=== PATIENT | male | born 2000 | race Two or more races ===

== ENCOUNTER 2024-05-26 22:54 | Emergency (ER) | payer SELFPAY ==
[2024-05-26 22:54] VITALS: BMI 32.8
[2024-05-26 23:02] VITALS: BP 124/79; PULSE 119; RESP 18; TEMP 39.2; O2SAT 98
--- NOTE | 2024-05-26 23:09 | PD.EDFEVER ---
ED Fever RME/HPI General Chief Complaint: Fever Stated Complaint: FEVER X2DAYS Time Seen by Provider: 05/26/24 22:58 Arrival date/time: 05/26/24 22:54 RME / HPI RME / HPI Narrative: This section includes all my notes and documentations, including HPI, PE, and ED course. Binh Chan MD HPI: 24yo male presents to the ED for a chief complaint of fever and chills x 2 days. Patient states he's had a fever, chills, cough, and body aches for the last 2 days. He denies any nausea, vomiting, diarrhea or any other associated symptoms. He endorses taking ibuprofen 800mg an hour [employer]. He did not get his flu shot this year. No other complaints reported. ROS: All negative except as documented in HPI. Physical Exam: General: Alert and oriented. Appearance of malaise noted. Eyes: Conjunctivae and lids clear. ENT: No nasal congestion. Pharynx normal. TM normal bilaterally. Neck: Supple. Heart: RRR. Lungs: No respiratory distress. Good air movement. No rhonchi, wheezing, rales. Abdomen: Soft and nontender. Legs: No clubbing, cyanosis, edema. Skin: Warm and dry. Neuro: Alert and oriented X 3. Influenza positive. At this point, diagnoses include Influenza B. Treatment here included Tamiflu 75 mg and two Tylenol #3. Started to feel better. Prescribe Tamiflu and recommended supportive care. Based on my best medical judgment, made decision no further evaluation or treatment indicated at this time. Patient understands and agrees to the discharge instructions customized and printed, see below. Discharge instructions from Dr. Chan: --No physical exertion for 3 days to help rest your lungs. --No smoking and no exposure to smoking or pets or dust or cold air. --Tamiflu to kill the influenza germs. --Prednisone to help decrease inflammation of the lungs. --Tylenol 1000 mg alternating with ibuprofen 800 mg every 4 hours today and tomorrow scheduled. Then as needed for fever/pain. ?Increase oral fluid. We need extra fluid when we are sick. --See a private doctor on 05/30/2024 if not completely better. --Seek immediate medical care with significant worsening or with any concerns. Binh Chan MD Related Data Previous Rx's ?Medication ?Instructions ?Recorded oseltamivir 75 mg capsule (Tamiflu) 75 mg PO BID 5 days #10 caps 05/26/24 prednisone 20 mg tablet 40 mg PO DAILY 5 days #10 tabs 05/26/24 Allergies Allergy/AdvReac Type Severity Reaction Status Date / Time NKA Allergy Unknown Uncoded 11/21/16 20:38 Review of Systems Review of Systems Systems Reviewed: All systems reviewed, normal except as documented Past Medical History Social History SMOKING STATUS: Never smoker Physical Exam Narrative Physical exam: As noted in HPI. Course Quality Measures none Orders Category Date Time Status Bedside Influenza A&B Antigen Test NOW Care 05/26/24 23:08 Active ACETAMINOPHEN w/COD 300-30 [Tylenol w/Cod #3] Med 05/26/24 23:08 Discontinued 2 tab PO X1 ONE Oseltamivir [Tamiflu] Med 05/26/24 23:08 Discontinued 75 mg PO X1 ONE predniSONE Med 05/26/24 23:08 Discontinued 60 mg PO X1 ONE Vital Signs Vital signs: Vital Signs Temperature 102.5 F H 05/26/24 23:02 Pulse Rate 119 H 05/26/24 23:02 Respiratory Rate 18 05/26/24 23:02 Blood Pressure 124/79 05/26/24 23:02 Pulse Oximetry (%) 98 05/26/24 23:02 Oxygen Delivery Method Room Air 05/26/24 23:02 Fever MDM Narrative [facility] Narrative:: Scribe Attestation: 05/26/24 - Willa Gonzales am scribing for and in the presence of Dr. Chan. Patient data External records reviewed:: [facility] previous records (Per chart review, patient has no previous ED visits or admissions to this facility.) Clinical information provided by:: patient Social determinants that could affect healthcare access:: none Patient has the following chronic illnesses:: none How is presenting disease/condition affected by chronic disease/condition?: no chronic disease Evaluation data The following diagnostics were reviewed and interpreted by me:: lab results Lab and/or radiology exams considered but not ordered:: none Interpretation Summary: Influenza B Medications / Prescriptions Medications or Prescriptions considered but not ordered:: none Medication administrations:: Medication Administration History Discontinued Medications Acetaminophen/Codeine Phosphate (Acetaminophen W/Cod 300-30 Tablet) 2 tab PO X1 ONE Stop: 05/26/24 23:09 Last Admin: 05/26/24 23:26 Dose: 2 tab Documented By: OA Oseltamivir Phosphate (Oseltamivir 75 Mg Capsule) 75 mg PO X1 ONE Stop: 05/26/24 23:09 Last Admin: 05/26/24 23:26 Dose: 75 mg Documented By: OA Prednisone (Prednisone 20 Mg Tablet) 60 mg PO X1 ONE Stop: 05/26/24 23:09 Last Admin: 05/26/24 23:27 Dose: 60 mg Documented By: OA Tamiflu and prednisone and two Tylenol #3 Consultations Consultation(s) initiated? (list below): No Diagnosis Fever Differential Diagnosis: viral infection and influenza Most likely diagnosis given after review of the tests above:: Influenza B Admission Indicated Admission indicated?: not indicated Explain why admission is indicated or not indicated:: Admission criteria not met Admission Request Was there a request for admission?: No Disposition Plan Disposition Plan: Discharge Discharge Attestation Discharge Attestation: The patient and all family members were given an opportunity to ask questions and understood the discharge instructions. Discharge instructions specifically effects, indications for sooner follow up or return to the emergency department, and the expected course of current diagnosis. Patient condition: Stable Discharge Plan Plan Patient Disposition: HOME (Self Care) Prescriptions/Referrals Prescriptions/Med Rec: New prednisone 20 mg tablet 40 mg PO DAILY 5 Days Qty: 10 0RF Taper: Prednisone Taper 20 mg DAILY for 2 Days and 0 Hour 10 mg DAILY for 2 Days and 0 Hour 5 mg DAILY for 7 Days and 0 Hour oseltamivir [Tamiflu] 75 mg capsule 75 mg PO BID 5 Days Qty: 10 0RF Referrals: Temporary Provider,ED [Primary Care Provider] - In 1 week Problem List Clinical Impression: Influenza Patient/Caregiver Discharge Instructions Discharge Activity: activity as tolerated Education Materials: ED Influenza (Adult) Additional Instructions: Discharge instructions from Dr. Chan: --No physical exertion for 3 days to help rest your lungs. --No smoking and no exposure to smoking or pets or dust or cold air. --Tamiflu to kill the influenza germs. --Prednisone to help decrease inflammation of the lungs. --Tylenol 1000 mg alternating with ibuprofen 800 mg every 4 hours today and tomorrow scheduled. Then as needed for fever/pain. ?Increase oral fluid.? We need extra fluid when we are sick.?? --See a private doctor on 05/30/2024 if not completely better. --Seek immediate medical care with significant worsening or with any concerns. Print Language: Somali Stand Alone Forms: Diane Award Info., Patient Portal Info Letter
[2024-05-26] MEDS: OSELTAMIVIR 75 MG CAPSULE PO (23:26)
[2024-05-26] MEDS: ACETAMINOPHEN w/COD 300-30 TABLET 2 TAB PO (23:26)
[2024-05-26] MEDS: predniSONE 20 MG TABLET 60 MG PO (23:27)
[2024-05-27 00:28] VITALS: PULSE 89; TEMP 37.2
== END 2024-05-27 00:29 | disposition home or self-care (01) ==
PROVIDERS: Emergency Provider Emergency Medicine
DX: J10.1 Influenza due to other identified influenza virus with other respiratory manifestations (principal)
CPT/HCPCS: 99283; J7512; A9270